=== PATIENT | male | born 1970 | race African-American/Black ===

== ENCOUNTER 2018-08-25 02:20 | Emergency (ER) | payer OTHER ==
[~2018-08-25] VITALS: Ht 180.3 cm; Wt 81.6 kg
[2018-08-25 02:26] VITALS: BP 143/83
[2018-08-25] MEDS: FLUORESCEIN SODIUM OPHTH 1 EA STRIP OP ONE (02:48)
[2018-08-25] MEDS ORDERED: FLUORESCEIN SODIUM OPHTH 1 EA STRIP ONE (02:48)
[2018-08-25] MEDS: TETRACAINE HCL/PF 0.5% UD 2 ML BOTTLE OP ONE (02:48)
[2018-08-25] MEDS ORDERED: TETRACAINE HCL/PF 0.5% UD 2 ML BOTTLE ONE (02:49)
== END 2018-08-25 03:34 | disposition home or self-care (01) ==
LOC: ER 02:35
DX: B99.9 Unspecified infectious disease (principal); H10.89 Other conjunctivitis; F17.200 Nicotine dependence, unspecified, uncomplicated; Z98.890 Other specified postprocedural states

== ENCOUNTER 2018-12-05 23:02 | Emergency (ER) | payer OTHER ==
[~2018-12-05] VITALS: Ht 180.3 cm; Wt 81.6 kg
[2018-12-05] MEDS ORDERED: HYDROCODONE/APAP 5/325MG 1 EACH TABLET ONE (23:46)
[2018-12-06] MEDS ORDERED: IV NS 0.9% 1,000 ML BAG IV ONE
[2018-12-06] MEDS ORDERED: CYCLOBENZAPRINE 10 MG TABLET PO ONE
[2018-12-06] MEDS ORDERED: HYDROCODONE/APAP 5/325MG 1 EACH TABLET PO ONE
[2018-12-06] MEDS ORDERED: CYCLOBENZAPRINE 10 MG TABLET ONE (00:16)
[2018-12-06 00:25] LABS: BASOPHILS # (AUTO) 0.2 /CMM (0.0-0.2); BASOPHILS % (AUTO) 2.1 % (0.0-2.0); EOSINOPHILS % (AUTO) 2.5 % (0.0-6.0); HEMATOCRIT 43 % (39-51); HEMOGLOBIN 14.7 g/dL (13.5-17.5); LYMPHOCYTES # (AUTO) 2.6 /CMM (0.8-4.8); LYMPHOCYTES % (AUTO) 34.2 % (20.0-44.0); MEAN CORPUSCULAR HGB CONC 34 g/dl (31.0-36.0); MEAN CORPUSCULAR VOLUME 92 fL (80-96); MONOCYTES # (AUTO) 0.7 /CMM (0.1-1.30); MONOCYTES % (AUTO) 9.5 % (2.0-12.0); NEUTROPHILS # (AUTO) 3.9 /CMM (1.8-8.9); NEUTROPHILS % (AUTO) 51.7 % (43.0-81.0); PLATELET COUNT (AUTO) 239 /CMM (150-450); RED BLOOD CELL COUNT(AUTO) 4.66 MIL/uL (4.5-6.0); WHITE BLOOD COUNT (AUTO) 7.6 K/uL (4.3-11.0)
--- NOTE | 2018-12-06 00:25 | NUR ---
RECEIVED PT AOX3 COMPLANING OF LEFT HIP PAIN WHEN WAKEN UP. DENIES SOB, NO ACUTE RESPIRATORY DISTRESS. AFEBRILE. VSS. URINE SAMPLE GIVEN. XRAY DONE AT BEDSIDE. IV ISTE PLACED ON LEFT AC G 20 INTACT AND PATENT. ALL DUE MEDICINE GIVEN ORDERED
[2018-12-06 00:32] LABS: CALCIUM, SERUM 8.3 mg/dL (8.5-10.1); CREATININE 1.2 mg/dL (0.6-1.3); POTASSIUM 3.6 mmol/L (3.5-5.1)
[2018-12-06 00:38] LABS: ALBUMIN 3.8 g/dL (3.4-5.0); BILIRUBIN,TOTAL 0.2 mg/dL (0.2-1.0); TOTAL PROTEIN, SERUM 6.8 g/dL (6.4-8.2)
[2018-12-06 00:42] LABS: APPEARANCE,URINE Clear (CLEAR); BILIRUBIN,URINE Negative (NEGATIVE); BLOOD, URINE Negative Ery/uL (NEGATIVE); COLOR,URINE Yellow (YELLOW); KETONES,URINE Trace (NEGATIVE); LEUKOCYTE ESTERASE ,URINE Negative (NEGATIVE); NITRITE, URINE Negative (NEGATIVE); PROTEIN,URINE Trace mg/dl (NEGATIVE); UGLUCOSE 100 MG/DL mg/dL (NEGATIVE)
--- NOTE | 2018-12-06 00:49 | NUR ---
PICKED UP FOR CT ABDOMEN/PELVIS
[2018-12-06 01:24] LABS: BACTERIA,URINE None seen /HPF (None Seen); CALCIUM OXALATE CRYSTALS,UR Moderate /HPF (None Seen); MUCUS,URINE Few /LPF (None Seen); RBC,URINE 0-2 /HPF (0-2); SQUAMOUS EPITHELIAL CELL,UR Few /HPF (None Seen); WBC,URINE 0-2 /HPF (0-3)
[2018-12-06 04:26] VITALS: BP 127/75
== END 2018-12-06 04:27 | disposition home or self-care (01) ==
LOC: ER 23:07
DX: K40.20 Bilateral inguinal hernia, without obstruction or gangrene, not specified as recurrent (principal); I86.1 Scrotal varices; F17.200 Nicotine dependence, unspecified, uncomplicated; Z98.890 Other specified postprocedural states
CPT/HCPCS: 36415; 74176; 76870; 80053; 81001; 83605; 85025; 85730; 99284; J7030; 81000-TC

== ENCOUNTER 2018-12-06 16:32 | Emergency (ER) | payer OTHER ==
[~2018-12-06] VITALS: Ht 180.3 cm; Wt 71.7 kg
[2018-12-06 16:52] VITALS: BP 125/84
--- NOTE | 2018-12-06 17:02 | NUR ---
patient left without being seen by MD. Dr. Forte aware.
== END 2018-12-06 17:01 | disposition home or self-care (01) ==
LOC: ER 16:32
DX: Z53.21 Procedure and treatment not carried out due to patient leaving prior to being seen by health care provider (principal); F17.200 Nicotine dependence, unspecified, uncomplicated; Z98.890 Other specified postprocedural states

== ENCOUNTER 2019-03-24 04:03 | Emergency (ER) | payer OTHER ==
[~2019-03-24] VITALS: Ht 180.3 cm; Wt 81.6 kg
[2019-03-24 04:09] VITALS: BP 168/107
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
[2019-03-24] MEDS ORDERED: HYDROCODONE/APAP 5/325MG 1 EACH TABLET ONE ×2 (04:22→07:00)
--- NOTE | 2019-03-24 04:25 | NUR ---
EMT AT BEDSIDE FOR WOUND CLEANING
[2019-03-24] MEDS ORDERED: HYDROCODONE/APAP 5/325MG 1 EACH TABLET PO ONE ×2 (04:30→07:00)
--- NOTE | 2019-03-24 04:34 | NUR ---
XRAY AT BEDSIDE
--- NOTE | 2019-03-24 04:53 | NUR ---
[employer] AT BEDSIDE
[2019-03-24] MEDS ORDERED: LIDOCAINE 2% 50 ML MDV IJ ONE (04:54)
[2019-03-24] MEDS ORDERED: CEPHALEXIN MONOHYDRATE 500 MG CAPSULE PO ONE ×2 (06:56→07:00)
--- NOTE | 2019-03-24 07:24 | NUR ---
DID SUTURE. DREESING BY EMT CLEANSE NS PAT DRY NON ADHERENT DRESSING GAUZE AND WRAPPED WITH KERLIX. WOUND INSTRUCTION ALSO GIVEN
--- NOTE | 2019-03-24 07:26 | NUR ---
Patient discharged to home in stable condition. Written and verbal after care instructions given. Patient verbalizes understanding of instruction. Pt ambulatory with a steady gait
== END 2019-03-24 07:29 | disposition home or self-care (01) ==
LOC: ER 04:08
DX: S61.411A Laceration without foreign body of right hand, initial encounter (principal); F17.200 Nicotine dependence, unspecified, uncomplicated; Z98.890 Other specified postprocedural states; Z60.2 Problems related to living alone; X99.1XXA Assault by knife, initial encounter; Y93.89 Activity, other specified; Y92.89 Other specified places as the place of occurrence of the external cause; Y99.8 Other external cause status
CPT/HCPCS: 12005; 73130; 99284; A6403; J3490

== ENCOUNTER 2019-03-26 11:33 | Emergency (ER) | payer OTHER ==
[~2019-03-26] VITALS: Ht 180.3 cm; Wt 81.6 kg
[2019-03-26 12:31] VITALS: BP 143/85
[2019-03-26] MEDS ORDERED: HYDROCODONE/APAP 5/325MG 1 EACH TABLET ONE (13:22)
[2019-03-26] MEDS ORDERED: HYDROCODONE/APAP 5/325MG 1 EACH TABLET PO ONE (13:30)
== END 2019-03-26 13:30 | disposition home or self-care (01) ==
LOC: ER 11:35
DX: S61.411D Laceration without foreign body of right hand, subsequent encounter (principal); F17.200 Nicotine dependence, unspecified, uncomplicated; Z98.890 Other specified postprocedural states; Z60.2 Problems related to living alone; X58.XXXD Exposure to other specified factors, subsequent encounter

== ENCOUNTER → 2019-04-14 | Emergency (ER) | payer OTHER ==
[~2019-04-14] VITALS: Ht 180.3 cm; Wt 81.6 kg
[~2019-04-14] MED LIST: LIDOCAINE 1%-EPI 1:100,000 20 ML VIAL ONE; LIDOCAINE 1%-EPI 1:100,000 20 ML VIAL TP ONE
[2019-04-14 13:59] VITALS: BP 142/78
== END | disposition left against medical advice (07) ==
LOC: ER 13:24
DX: L02.11 Cutaneous abscess of neck (principal); F17.200 Nicotine dependence, unspecified, uncomplicated; Z98.890 Other specified postprocedural states; Z60.2 Problems related to living alone
CPT/HCPCS: 10060; 99283; J3490

== ENCOUNTER 2020-07-26 07:08 | Emergency (ER) | payer OTHER ==
[~2020-07-26] VITALS: Ht 180.3 cm; Wt 83.9 kg
[2020-07-26 07:16] VITALS: BP 153/98
--- NOTE | 2020-07-26 07:52 | NUR ---
AT BEDSIDE FOR EVAL.
[2020-07-26] MEDS ORDERED: KETOROLAC TROMETHAMINE INJ 60 MG/2 ML VIAL IM ONE ×2 (08:00→08:09)
--- NOTE | 2020-07-26 08:23 | NUR ---
Patient discharged to home in stable condition. Written and verbal after care instructions given. Patient verbalizes understanding of instruction.
== END 2020-07-26 08:24 | disposition home or self-care (01) ==
LOC: ER 07:13
DX: S13.8XXA Sprain of joints and ligaments of other parts of neck, initial encounter (principal); Z98.890 Other specified postprocedural states; Z60.2 Problems related to living alone; X58.XXXA Exposure to other specified factors, initial encounter; Y93.89 Activity, other specified; Y92.89 Other specified places as the place of occurrence of the external cause; Y99.8 Other external cause status
CPT/HCPCS: 96372; 99283; J1885

== ENCOUNTER 2020-08-05 16:48 | Emergency (ER) | payer OTHER ==
[~2020-08-05] VITALS: Ht 180.3 cm; Wt 83.9 kg
[2020-08-05] MEDS ORDERED: ACETAMINOPHEN ES 500 MG TABLET ONE (18:39)
[2020-08-05] MEDS: IV NS 0.9% 1,000 ML BAG IV ONE ×2 (18:50→20:18)
[2020-08-05] MEDS: ACETAMINOPHEN 325 MG TABLET PO ONE (18:53)
--- NOTE | 2020-08-05 18:54 | NUR ---
covid 19 PCR and rapid influenza done and sent to lab
[2020-08-05 20:53] VITALS: BP 147/90
--- NOTE | 2020-08-05 20:53 | NUR ---
IV removed. Catheter intact and site benign. Pressure and 4x4 applied to site. No bleeding noted.Patient given written and verbal discharge instructions. Patient verbalizes understanding of instructions. Patient is ambulatory with steady gait. Refuses offer of residential placement. Patient given list of available shelters in surrounding area.
== END 2020-08-05 20:55 | disposition home or self-care (01) ==
LOC: ER 16:53
DX: B34.9 Viral infection, unspecified (principal); R50.9 Fever, unspecified; R05 Cough; Z20.828 Contact with and (suspected) exposure to other viral communicable diseases; R00.0 Tachycardia, unspecified; F17.200 Nicotine dependence, unspecified, uncomplicated; R03.0 Elevated blood-pressure reading, without diagnosis of hypertension
CPT/HCPCS: 71045; 87804; 96360; 96361; 99284; C9803; J7030; U0003